=== PATIENT | male | born 1990 | race Caucasian/White ===

== ENCOUNTER 2019-05-03 09:42 | Emergency (ER) | payer MEDICAID ==
[~2019-05-03] VITALS: Ht 172.7 cm; Wt 82.6 kg
[2019-05-03] MEDS ORDERED: ADENOSINE 6 MG/2 ML SYR IV ONE ×3 (10:08→10:30)
[2019-05-03] MEDS ORDERED: DILTIAZEM HCL 25 MG IV ONE (10:13)
[2019-05-03] MEDS ORDERED: DILTIAZEM HCL 25 MG IV IV ONE (10:15)
[2019-05-03] MEDS ORDERED: IV NORMAL SALINE 1000 ML BAG IV ONE (10:15)
[2019-05-03 10:18] LABS: BASOPHILS % (AUTO) 0.3 % (0.0-2.0); EOSINOPHILS % (AUTO) 0.6 % (0.0-7.0); HEMATOCRIT 51.1 % (36.7-47.1); HEMOGLOBIN 17.2 g/dL (12.5-16.3); LYMPHOCYTES % (AUTO) 38.1 % (20.5-51.5); MEAN CORPUSCULAR HEMOGLOBIN 30.6 uug (23.8-33.4); MEAN CORPUSCULAR HGB CONC 34 g/dL (32.5-36.3); MEAN CORPUSCULAR VOLUME 90.7 fL (73.0-96.2); MONOCYTES # (AUTO) 0.7 K/uL (2.0-10.0); MONOCYTES % (AUTO) 8.7 % (0.0-11.0); NEUTROPHILS % (AUTO) 52.3 % (38.5-71.5); PLATELET COUNT (AUTO) 300 K/uL (152-348); RED BLOOD CELL COUNT(AUTO) 5.63 MIL/uL (4.06-5.63); WHITE BLOOD COUNT (AUTO) 7.7 K/uL (3.6-10.2)
[2019-05-03 10:25] VITALS: BP 133/71
[2019-05-03 10:27] LABS: CREATININE 1.2 mg/dL (0.6-1.3); POTASSIUM 3.3 mmol/L (3.5-5.1)
--- NOTE | 2019-05-03 10:33 | NUR ---
Patient is resting comfortably in bed with eyes closed. PATIENT IS PAIN FREE AT THIS TIME.
[2019-05-03 10:40] LABS: BILIRUBIN,DIRECT 0.1 mg/dL (0.0-0.2); BILIRUBIN,TOTAL 0.4 mg/dL (0.2-1.0)
--- NOTE | 2019-05-03 11:32 | NUR ---
IV removed. Catheter intact and site benign. Pressure and 4x4 gauze applied to site. No bleeding noted. Patient discharged to home in stable conditon & brisk steady gait. Written and verbal after care instructions given to patient. Patient verbalizes understanding compliance of instructions.
[2019-05-03 12:06] LABS: *AMPHETAMINE, URINE NEGATIVE (NEGATIVE); *BARBITURATE, URINE NEGATIVE (NEGATIVE); *CANNABINOID, URINE NEGATIVE (NEGATIVE); *COCCAINE, URINE NEGATIVE (NEGATIVE); *OPIATE, URINE NEGATIVE (NEGATIVE)
[2019-05-03 12:17] LABS: *PHENCYCLIDINE SCREEN,URINE NEGATIVE (NEGATIVE)
== END 2019-05-03 11:33 | disposition home or self-care (01) ==
LOC: ER 09:42
DX: I47.1 Supraventricular tachycardia (principal)
CPT/HCPCS: 36415; 71045; 80048; 80076; 80307; 83880; 84443; 84484; 85025; 85730; 93005 ×2; 96374; 96375; 99284; J0153; J3490; 70030-TC; A4663; J7030